=== PATIENT | male | born 1945 | race Caucasian/White ===

== ENCOUNTER 2023-10-04 16:11 | Inpatient (IN) | payer OTHER, MEDICAID ==
[~2023-10-04] VITALS: Ht 185.4 cm; Wt 63.8 kg
[2023-10-04 16:26] VITALS: BP 128/62; PULSE 67; RESP 16; TEMP 97.5; O2SAT 98
[2023-10-04 16:55] VITALS: O2SAT 98
[2023-10-04] MEDS: LORazepam 2 MG/ML VIAL IVP ONE (18:16)
[2023-10-04 18:22] LABS: BASOPHILS # (AUTO) 0.1 K/uL (0.00-0.22); EOSINOPHILS # (AUTO) 0.3 K/uL (0-0.4); EOSINOPHILS % (AUTO) 3.4 % (0.0-4.0); HEMATOCRIT 27.4 % (36-52); HEMOGLOBIN 9.2 g/dL (12.0-18.0); LYMPHOCYTES # (AUTO) 1.4 K/uL (2.0-11.5); LYMPHOCYTES % (AUTO) 14.5 % (20.5-51.1); MEAN CORPUSCULAR HEMOGLOBIN 30 pg (27-31); MEAN CORPUSCULAR HGB CONC 34 g/dL (33-37); MEAN CORPUSCULAR VOLUME 88.3 fL (80-94); MONOCYTES # (AUTO) 0.7 K/uL (0.8-1.0); MONOCYTES % (AUTO) 7.3 % (1.7-9.3); NEUTROPHILS # (AUTO) 7.3 K/uL (1.8-7.7); NEUTROPHILS % (AUTO) 73.8 % (42.2-75.2); PLATELET COUNT (AUTO) 168 K/uL (140-450); RED CELL DISTRIBUTION WIDTH 13.8 % (11.6-13.7); WHITE BLOOD COUNT (AUTO) 9.9 K/uL (4.8-10.8)
[2023-10-04 18:36] LABS: ANION GAP 12.7 (8-16); CHLORIDE 106 mmol/L (98-107); CREATININE 1.6 mg/dL (0.6-1.3); GLUCOSE 91 mg/dL (74-106); POTASSIUM 3.7 mmol/L (3.5-5.1); SODIUM SERUM 139 mmol/L (136-145); UREA NITROGEN, BLOOD 17 mg/dL (7-18)
[2023-10-04 18:49] LABS: ALBUMIN 2.4 g/dL (3.4-5.0); BILIRUBIN,DIRECT 0.1 mg/dL (0.0-0.3); THYROID STIMULATING HORMONE 0.94 uIU/mL (0.34-3.74); TOTAL BILIRUBIN 0.4 mg/dL (0.0-1.0); TOTAL PROTEIN, SERUM 6.6 g/dL (6.4-8.2)
[2023-10-04 20:20] LABS: APPEARANCE,URINE SL CLOUDY (CLEAR); BILIRUBIN,URINE NEGATIVE (NEGATIVE); BLOOD, URINE 1+ (NEGATIVE); COLOR,URINE YELLOW (YELLOW); LEUKOCYTE ESTERASE ,URINE NEGATIVE (NEGATIVE); NITRITE, URINE NEGATIVE (NEGATIVE); PH,URINE 6.5 (5.0-9.0); PROTEIN,URINE 2+ (NEGATIVE); UGLUCOSE NEGATIVE (NEGATIVE); UROBILINOGEN,URINE 0.2 EU/dL (0.2 - 1)
[2023-10-04 20:35] LABS: BACTERIA,URINE 10-30 (MOD) /HPF (None Seen); SQUAMOUS EPITHELIAL CELL,UR 0-3 (FEW) /LPF (0-3 (FEW))
[2023-10-04] MEDS ORDERED: cefTRIAXone 1,000 MG VIAL ONE (23:25)
[2023-10-04] MEDS ORDERED: ONDANSETRON 4 MG/2 ML VIAL IVP PRN (23:55)
[2023-10-05] MEDS ORDERED: VANCOMYCIN PER PHARMACY MC PRN ×2 (00:05→17:50)
[2023-10-05] MEDS ORDERED: VANCOMYCIN 1,000 MG VIAL ONE (00:22)
[2023-10-05] MEDS: VANCOMYCIN 1GM/DEXT 5% PREMIX 200 ML IV ONE (00:25)
[2023-10-05] MEDS: NACL 0.9% 1,000 ML IV SCH (00:25)
[2023-10-05] MEDS ORDERED: MULT-1328 PO (03:08)
[2023-10-05] MEDS ORDERED: ASPI-1822 PO (03:08)
[2023-10-05] MEDS ORDERED: LIP80 PO (03:18)
[2023-10-05] MEDS ORDERED: SIME80CT27 PO (03:18)
[2023-10-05] MEDS ORDERED: APIX2.5 PO (03:18)
[2023-10-05] MEDS ORDERED: ACET-8905 PO (03:18)
[2023-10-05] MEDS ORDERED: CARV3.12 PO (03:18)
[2023-10-05] MEDS ORDERED: IBUP-2213 PO (03:18)
[2023-10-05] MEDS ORDERED: ONDA-188 PO (03:18)
[2023-10-05] MEDS ORDERED: ASCO500T95 PO (03:18)
[2023-10-05] MEDS ORDERED: LANS15EC28 PO (03:18)
[2023-10-05] MEDS: HYDROcodone/APAP 5/325 MG 1 TAB TAB PO PRN (05:47)
[2023-10-05] MEDS ORDERED: LID5T TP (06:03)
[2023-10-05] MEDS ORDERED: DICL20GE TP (06:03)
[2023-10-05] MEDS: PIPERACILLIN/TAZOBACTAM 3.375 GM in DEXTROSE 5% 50 ML IV SCH (06:09)
[2023-10-05] MEDS ORDERED: PIPERACILLIN/TAZOBACTAM 3.375 GM VIAL IV ONE (06:10)
[2023-10-05 07:18] LABS: BASOPHILS # (AUTO) 0.1 K/uL (0.00-0.22); BASOPHILS % (AUTO) 0.8 % (0.0-2.0); EOSINOPHILS # (AUTO) 0.3 K/uL (0-0.4); EOSINOPHILS % (AUTO) 3.8 % (0.0-4.0); HEMATOCRIT 24.7 % (36-52); HEMOGLOBIN 8.5 g/dL (12.0-18.0); LYMPHOCYTES # (AUTO) 1.4 K/uL (2.0-11.5); LYMPHOCYTES % (AUTO) 19.9 % (20.5-51.1); MEAN CORPUSCULAR HEMOGLOBIN 30 pg (27-31); MEAN CORPUSCULAR HGB CONC 34 g/dL (33-37); MEAN CORPUSCULAR VOLUME 88.4 fL (80-94); MONOCYTES # (AUTO) 0.6 K/uL (0.8-1.0); MONOCYTES % (AUTO) 8.4 % (1.7-9.3); NEUTROPHILS # (AUTO) 4.8 K/uL (1.8-7.7); NEUTROPHILS % (AUTO) 67.1 % (42.2-75.2); PLATELET COUNT (AUTO) 154 K/uL (140-450); RED BLOOD CELL COUNT(AUTO) 2.79 MIL/uL (4.20-6.10); RED CELL DISTRIBUTION WIDTH 13.8 % (11.6-13.7); WHITE BLOOD COUNT (AUTO) 7.1 K/uL (4.8-10.8)
[2023-10-05 07:48] LABS: ALANINE AMINOTRANSFERASE 10 U/L (12-78); ALKALINE PHOSPHATASE 85 U/L (50-136); ANION GAP 10.8 (8-16); ASPARTATE AMINOTRANSFERASE 13 U/L (15-37); CALCIUM 8.2 mg/dL (8.5-10.1); CARBON DIOXIDE 24.8 mmol/L (21-32); CHLORIDE 108 mmol/L (98-107); CREATININE 1.7 mg/dL (0.6-1.3); GLUCOSE 105 mg/dL (74-106); POTASSIUM 3.6 mmol/L (3.5-5.1); SODIUM SERUM 140 mmol/L (136-145); TOTAL BILIRUBIN 0.3 mg/dL (0.0-1.0); TOTAL PROTEIN, SERUM 5.7 g/dL (6.4-8.2); UREA NITROGEN, BLOOD 20 mg/dL (7-18)
[2023-10-05] MEDS: PANTOPRAZOLE 40 MG INJ VIAL IVP SCH (08:43)
[2023-10-05] MEDS: VANCOMYCIN 750 MG in DEXTROSE 5% 250 ML IV SCH (08:44)
[2023-10-05] MEDS: DOCUSATE SODIUM 100 MG GELCAP PO SCH (08:45)
[2023-10-05] MEDS: LORazepam 1 MG TAB PO PRN (09:51)
[2023-10-05] MEDS: PIPERACILLIN/TAZOBACTAM 2.25 GM in DEXTROSE 5% 50 ML IV SCH (12:11)
[2023-10-05] MEDS ORDERED: SIMETHICONE 80 MG TAB.CHEW PO PRN (17:40)
[2023-10-05] MEDS: carvediloL 3.125 MG TAB PO SCH (21:00)
[2023-10-06] VITALS (7 sets, daily range): BP systolic 128–142; BP diastolic 61–76; PULSE 62–86; RESP 18–21; TEMP 97.1–98.2; O2SAT 96–100
[2023-10-06 06:46] LABS: ALANINE AMINOTRANSFERASE 10 U/L (12-78); ALKALINE PHOSPHATASE 81 U/L (50-136); ASPARTATE AMINOTRANSFERASE 16 U/L (15-37); CALCIUM 7.9 mg/dL (8.5-10.1); CARBON DIOXIDE 18.9 mmol/L (21-32); CHLORIDE 108 mmol/L (98-107); CREATININE 1.6 mg/dL (0.6-1.3); GLUCOSE 74 mg/dL (74-106); POTASSIUM 3.9 mmol/L (3.5-5.1); SODIUM SERUM 139 mmol/L (136-145); TOTAL BILIRUBIN 0.3 mg/dL (0.0-1.0); TOTAL PROTEIN, SERUM 5.7 g/dL (6.4-8.2); UREA NITROGEN, BLOOD 17 mg/dL (7-18)
[2023-10-06] MEDS: ASPIRIN 81 MG TAB.CHEW PO SCH (09:06)
[2023-10-06] MEDS: ATORVASTATIN 80 MG TAB PO SCH (09:06)
[2023-10-06 09:23] LABS: BASOPHILS # (AUTO) 0.1 K/uL (0.00-0.22); EOSINOPHILS # (AUTO) 0.4 K/uL (0-0.4); EOSINOPHILS % (AUTO) 5.6 % (0.0-4.0); HEMATOCRIT 23.7 % (36-52); HEMOGLOBIN 7.9 g/dL (12.0-18.0); LYMPHOCYTES # (AUTO) 1.3 K/uL (2.0-11.5); LYMPHOCYTES % (AUTO) 18.4 % (20.5-51.1); MEAN CORPUSCULAR HEMOGLOBIN 30 pg (27-31); MEAN CORPUSCULAR HGB CONC 33 g/dL (33-37); MEAN CORPUSCULAR VOLUME 89.1 fL (80-94); MONOCYTES # (AUTO) 0.5 K/uL (0.8-1.0); MONOCYTES % (AUTO) 7.3 % (1.7-9.3); NEUTROPHILS # (AUTO) 4.9 K/uL (1.8-7.7); NEUTROPHILS % (AUTO) 67.7 % (42.2-75.2); PLATELET COUNT (AUTO) 144 K/uL (140-450); RED BLOOD CELL COUNT(AUTO) 2.66 MIL/uL (4.20-6.10); RED CELL DISTRIBUTION WIDTH 13.8 % (11.6-13.7); WHITE BLOOD COUNT (AUTO) 7.3 K/uL (4.8-10.8)
[2023-10-06] MEDS ORDERED: VANCOMYCIN HCL 750 MG in DEXTROSE 5% 250 ML IV SCH (10:30)
[2023-10-06] MEDS: VANCOMYCIN HCL 750 MG in NACL 0.9% 250 ML IV SCH (13:03)
[2023-10-06] MEDS: ZOLPIDEM 5 MG TAB PO PRN (20:50)
[2023-10-07] VITALS (8 sets, daily range): BP systolic 102–153; BP diastolic 55–73; PULSE 62–76; RESP 18–20; TEMP 97–98; O2SAT 96
[2023-10-07 06:05] LABS: BASOPHILS # (AUTO) 0.1 K/uL (0.00-0.22); EOSINOPHILS # (AUTO) 0.4 K/uL (0-0.4); EOSINOPHILS % (AUTO) 6.5 % (0.0-4.0); HEMATOCRIT 23.4 % (36-52); LYMPHOCYTES # (AUTO) 1.3 K/uL (2.0-11.5); LYMPHOCYTES % (AUTO) 23.1 % (20.5-51.1); MEAN CORPUSCULAR HEMOGLOBIN 30 pg (27-31); MEAN CORPUSCULAR HGB CONC 34 g/dL (33-37); MEAN CORPUSCULAR VOLUME 87.7 fL (80-94); MONOCYTES # (AUTO) 0.5 K/uL (0.8-1.0); MONOCYTES % (AUTO) 8.6 % (1.7-9.3); NEUTROPHILS # (AUTO) 3.5 K/uL (1.8-7.7); NEUTROPHILS % (AUTO) 60.8 % (42.2-75.2); PLATELET COUNT (AUTO) 145 K/uL (140-450); RED BLOOD CELL COUNT(AUTO) 2.67 MIL/uL (4.20-6.10); RED CELL DISTRIBUTION WIDTH 13.9 % (11.6-13.7); WHITE BLOOD COUNT (AUTO) 5.8 K/uL (4.8-10.8)
[2023-10-07 06:14] LABS: ALANINE AMINOTRANSFERASE 8 U/L (12-78); ALKALINE PHOSPHATASE 74 U/L (50-136); ANION GAP 9.9 (8-16); ASPARTATE AMINOTRANSFERASE 13 U/L (15-37); CALCIUM 7.7 mg/dL (8.5-10.1); CARBON DIOXIDE 25.8 mmol/L (21-32); CHLORIDE 107 mmol/L (98-107); CREATININE 1.5 mg/dL (0.6-1.3); GLUCOSE 86 mg/dL (74-106); POTASSIUM 3.7 mmol/L (3.5-5.1); SODIUM SERUM 139 mmol/L (136-145); TOTAL BILIRUBIN 0.3 mg/dL (0.0-1.0); TOTAL PROTEIN, SERUM 5.5 g/dL (6.4-8.2); UREA NITROGEN, BLOOD 17 mg/dL (7-18)
[2023-10-07] MEDS: VANCOMYCIN HCL 750 MG in NACL 0.9% 250 ML IV SCH (10:18)
[2023-10-08 04:42] VITALS: O2SAT 99
[2023-10-08 07:11] LABS: BASOPHILS # (AUTO) 0.1 K/uL (0.00-0.22); BASOPHILS % (AUTO) 0.8 % (0.0-2.0); EOSINOPHILS # (AUTO) 0.5 K/uL (0-0.4); EOSINOPHILS % (AUTO) 7.6 % (0.0-4.0); HEMATOCRIT 24.6 % (36-52); HEMOGLOBIN 8.3 g/dL (12.0-18.0); LYMPHOCYTES # (AUTO) 1.5 K/uL (2.0-11.5); MEAN CORPUSCULAR HEMOGLOBIN 30 pg (27-31); MEAN CORPUSCULAR HGB CONC 34 g/dL (33-37); MEAN CORPUSCULAR VOLUME 88.1 fL (80-94); MONOCYTES # (AUTO) 0.5 K/uL (0.8-1.0); MONOCYTES % (AUTO) 7.4 % (1.7-9.3); NEUTROPHILS # (AUTO) 4.1 K/uL (1.8-7.7); NEUTROPHILS % (AUTO) 61.2 % (42.2-75.2); PLATELET COUNT (AUTO) 150 K/uL (140-450); RED BLOOD CELL COUNT(AUTO) 2.79 MIL/uL (4.20-6.10); WHITE BLOOD COUNT (AUTO) 6.6 K/uL (4.8-10.8)
[2023-10-08 07:22] LABS: ALANINE AMINOTRANSFERASE 11 U/L (12-78); ALKALINE PHOSPHATASE 68 U/L (50-136); ANION GAP 11.5 (8-16); ASPARTATE AMINOTRANSFERASE 15 U/L (15-37); CALCIUM 7.5 mg/dL (8.5-10.1); CARBON DIOXIDE 24.4 mmol/L (21-32); CHLORIDE 107 mmol/L (98-107); CREATININE 1.4 mg/dL (0.6-1.3); GLUCOSE 88 mg/dL (74-106); POTASSIUM 3.9 mmol/L (3.5-5.1); SODIUM SERUM 139 mmol/L (136-145); TOTAL BILIRUBIN 0.3 mg/dL (0.0-1.0); TOTAL PROTEIN, SERUM 5.6 g/dL (6.4-8.2); UREA NITROGEN, BLOOD 15 mg/dL (7-18)
[2023-10-08 08:00] VITALS: BP 140/54; PULSE 54; RESP 16; TEMP 97.1; O2SAT 98
[2023-10-08 08:06] VITALS: PULSE 68; RESP 19; O2SAT 99
[2023-10-08] MEDS: CRUSHER, PILL MC ONE (08:59)
[2023-10-08] MEDS: DOCUSATE 100 MG/10 ML UDC GT SCH (10:59)
[2023-10-08] MEDS ORDERED: FOAM DRESSING TP PRN (11:25)
[2023-10-08] MEDS ORDERED: THERAHONEY GEL 42.5 GM TP PRN (11:25)
[2023-10-08] MEDS: VANCOMYCIN 750 MG in DEXTROSE 5% 250 ML IV SCH (11:25)
[2023-10-08] MEDS: THERAHONEY GEL 42.5 GM TP SCH (13:00)
[2023-10-08] MEDS: FOAM DRESSING TP SCH (13:00)
[2023-10-08 18:00] VITALS: BP 146/56; PULSE 58; RESP 19; TEMP 98.7; O2SAT 99
[2023-10-08 20:00] VITALS: PULSE 64; RESP 18; O2SAT 98
[2023-10-08] MEDS ORDERED: ERTAPENEM SODIUM 1,000 MG VIAL IV ONE (23:57)
[2023-10-09 00:10] VITALS: BP 128/66; PULSE 72; RESP 18; TEMP 98.3; O2SAT 98
[2023-10-09] MEDS: ERTAPENEM SODIUM 1,000 MG in NACL 0.9% 50 ML IV SCH (00:18)
[2023-10-09] MEDS ORDERED: ERTAPENEM SODIUM 1,000 MG VIAL IV ONE (06:27)
[2023-10-09 07:14] LABS: BASOPHILS # (AUTO) 0.1 K/uL (0.00-0.22); EOSINOPHILS # (AUTO) 0.7 K/uL (0-0.4); EOSINOPHILS % (AUTO) 9.1 % (0.0-4.0); HEMATOCRIT 24.3 % (36-52); HEMOGLOBIN 8.1 g/dL (12.0-18.0); LYMPHOCYTES # (AUTO) 1.7 K/uL (2.0-11.5); LYMPHOCYTES % (AUTO) 21.7 % (20.5-51.1); MEAN CORPUSCULAR HEMOGLOBIN 30 pg (27-31); MEAN CORPUSCULAR HGB CONC 33 g/dL (33-37); MONOCYTES # (AUTO) 0.5 K/uL (0.8-1.0); MONOCYTES % (AUTO) 6.9 % (1.7-9.3); NEUTROPHILS # (AUTO) 4.7 K/uL (1.8-7.7); NEUTROPHILS % (AUTO) 61.3 % (42.2-75.2); PLATELET COUNT (AUTO) 143 K/uL (140-450); RED BLOOD CELL COUNT(AUTO) 2.73 MIL/uL (4.20-6.10); WHITE BLOOD COUNT (AUTO) 7.7 K/uL (4.8-10.8)
[2023-10-09 07:33] LABS: ALANINE AMINOTRANSFERASE 15 U/L (12-78); ALBUMIN 1.9 g/dL (3.4-5.0); ALKALINE PHOSPHATASE 68 U/L (50-136); ANION GAP 11.3 (8-16); ASPARTATE AMINOTRANSFERASE 21 U/L (15-37); CALCIUM 7.6 mg/dL (8.5-10.1); CARBON DIOXIDE 24.7 mmol/L (21-32); CHLORIDE 108 mmol/L (98-107); CREATININE 1.5 mg/dL (0.6-1.3); GLUCOSE 82 mg/dL (74-106); SODIUM SERUM 140 mmol/L (136-145); TOTAL BILIRUBIN 0.3 mg/dL (0.0-1.0); TOTAL PROTEIN, SERUM 5.5 g/dL (6.4-8.2); UREA NITROGEN, BLOOD 11 mg/dL (7-18)
[2023-10-09 08:00] VITALS: BP_SYST 108; BP_SYST 140; BP_DIAS 45; BP_DIAS 54; PULSE 52; PULSE 54; PULSE 59; PULSE 64; RESP 16; RESP 18; TEMP 97.1; TEMP 98; O2SAT 98
[2023-10-09 09:13] VITALS: O2SAT 100
[2023-10-09 12:00] VITALS: BP 131/50; PULSE 63; RESP 18; TEMP 98.1; O2SAT 98
[2023-10-09 15:09] VITALS: BP 131/50; PULSE 63; RESP 18; TEMP 98.4
[2023-10-10] MEDS ORDERED: ERTAPENEM SODIUM 1,000 MG in NACL 0.9% 50 ML IV SCH (08:00)
== END 2023-10-09 17:30 | DRG 592 ==
LOC: MED 16:11 → MTU 23:56
PROVIDERS: ADMIT Student in an Organized Health Care Education/Training Program; ATTEND Student in an Organized Health Care Education/Training Program
DX: L89.154 Pressure ulcer of sacral region, stage 4 (principal); E43 Unspecified severe protein-calorie malnutrition; Z68.1 Body mass index [BMI] 19.9 or less, adult; M47.898 Other spondylosis, sacral and sacrococcygeal region; I25.10 Atherosclerotic heart disease of native coronary artery without angina pectoris; N18.9 Chronic kidney disease, unspecified; D64.9 Anemia, unspecified; E11.22 Type 2 diabetes mellitus with diabetic chronic kidney disease; E11.69 Type 2 diabetes mellitus with other specified complication; F03.90 Unspecified dementia, unspecified severity, without behavioral disturbance, psychotic disturbance, mood disturbance, and anxiety; J44.9 Chronic obstructive pulmonary disease, unspecified; I25.2 Old myocardial infarction; Z88.1 Allergy status to other antibiotic agents
CPT/HCPCS: 36415; 71045; 72192; 80048; 80053; 80076; 80202; 81001; 82948; 83540; 83605; 84443; 85025; 87040; 87070; 87086; 87186; 96365; 96366; 96367; 96375; 99285; C9113; J0696; J0713; J1335; J2060; J2543; J3370; J7030; J7060

== ENCOUNTER 2023-10-16 15:06 | Inpatient (IN) | payer OTHER, MEDICAID ==
[~2023-10-16] VITALS: Ht 180.3 cm; Wt 72.3 kg
[~2023-10-16 15:06] MED LIST: ACET-8905 PO; APIX2.5 PO; ASCO500T95 PO; ASPI-1822 PO; CARV3.12 PO; DICL20GE TP; IBUP-2213 PO; LANS15EC28 PO; LID5T TP; LIP80 PO; MULT-1328 PO; ONDA-188 PO; SIME80CT27 PO
[2023-10-16 16:07] LABS: BASOPHILS # (AUTO) 0.1 K/uL (0.00-0.22); BASOPHILS % (AUTO) 0.9 % (0.0-2.0); EOSINOPHILS # (AUTO) 0.6 K/uL (0-0.4); EOSINOPHILS % (AUTO) 8.6 % (0.0-4.0); HEMOGLOBIN 9.6 g/dL (12.0-18.0); LYMPHOCYTES # (AUTO) 1.2 K/uL (2.0-11.5); LYMPHOCYTES % (AUTO) 16.9 % (20.5-51.1); MEAN CORPUSCULAR HEMOGLOBIN 30 pg (27-31); MEAN CORPUSCULAR HGB CONC 34 g/dL (33-37); MEAN CORPUSCULAR VOLUME 87.4 fL (80-94); MONOCYTES # (AUTO) 0.5 K/uL (0.8-1.0); MONOCYTES % (AUTO) 7.5 % (1.7-9.3); NEUTROPHILS # (AUTO) 4.5 K/uL (1.8-7.7); NEUTROPHILS % (AUTO) 66.1 % (42.2-75.2); PLATELET COUNT (AUTO) 152 K/uL (140-450); RED CELL DISTRIBUTION WIDTH 14.2 % (11.6-13.7); WHITE BLOOD COUNT (AUTO) 6.8 K/uL (4.8-10.8)
[2023-10-16 16:12] VITALS: BP 126/76; PULSE 72; RESP 18; TEMP 98.3; O2SAT 96
[2023-10-16 16:29] LABS: ANION GAP 12.7 (8-16); CALCIUM 8.5 mg/dL (8.5-10.1); CARBON DIOXIDE 27.4 mmol/L (21-32); CHLORIDE 103 mmol/L (98-107); CREATININE 1.2 mg/dL (0.6-1.3); GLUCOSE 86 mg/dL (74-106); POTASSIUM 4.1 mmol/L (3.5-5.1); SODIUM SERUM 139 mmol/L (136-145); UREA NITROGEN, BLOOD 12 mg/dL (7-18)
[2023-10-16 17:02] LABS: ALANINE AMINOTRANSFERASE 14 U/L (12-78); ALBUMIN 2.5 g/dL (3.4-5.0); ALCOHOL, BLOOD < 3 mg/dL (<10); ALKALINE PHOSPHATASE 100 U/L (50-136); ASPARTATE AMINOTRANSFERASE 21 U/L (15-37); BILIRUBIN,DIRECT 0.2 mg/dL (0.0-0.3); CREATINE KINASE, TOTAL 95 U/L (39-308); TOTAL BILIRUBIN 0.5 mg/dL (0.0-1.0); TOTAL PROTEIN, SERUM 6.6 g/dL (6.4-8.2)
[2023-10-16 17:03] LABS: SALICYLATE < 2.8 mg/dL (2.8-20.0)
[2023-10-16] MEDS: HALOPERIDOL IM 5 MG/ML VIAL IM ONE (17:57)
[2023-10-16 18:45] VITALS: O2SAT 95
[2023-10-16 18:51] LABS: BILIRUBIN,URINE NEGATIVE (NEGATIVE); BLOOD, URINE NEGATIVE (NEGATIVE); COLOR,URINE YELLOW (YELLOW); LEUKOCYTE ESTERASE ,URINE NEGATIVE (NEGATIVE); NITRITE, URINE NEGATIVE (NEGATIVE); PROTEIN,URINE 1+ (NEGATIVE); UGLUCOSE NEGATIVE (NEGATIVE); UROBILINOGEN,URINE 0.2 EU/dL (0.2 - 1)
[2023-10-16 18:52] LABS: APPEARANCE,URINE SLIGHTLY HAZY (CLEAR)
[2023-10-16 18:55] LABS: BACTERIA,URINE 1+ /HPF (None Seen); MUCUS,URINE None Seen /LPF (None Seen); RBC,URINE 0 /HPF (0-5); SQUAMOUS EPITHELIAL CELL,UR 0-3 (FEW) /LPF (0-3 (FEW)); WBC,URINE 0-5 /HPF (0-5)
[2023-10-16 18:57] LABS: AMPHETAMINE, URINE NEGATIVE ng/ml (NEG <=1000); BARBITURATE, URINE NEGATIVE ng/ml (NEG <=200); BENZODIAZEPINE, URINE NEGATIVE ng/mL (NEG <=200); CANNABINOID, URINE NEGATIVE ng/mL (NEG <=50); COCAINE, URINE NEGATIVE ng/mL (NEG <=300); OPIATE, URINE POSITIVE ng/mL (NEG <=2000); PHENCYCLIDINE SCREEN,URINE NEGATIVE ng/mL (NEG <=25)
[2023-10-16 19:47] VITALS: O2SAT 95
[2023-10-16] MEDS ORDERED: ONDANSETRON 4 MG/2 ML VIAL IVP PRN (20:15)
[2023-10-16] MEDS ORDERED: ACETAMINOPHEN 325 MG TAB PO PRN (20:15)
[2023-10-16] MEDS: ATORVASTATIN 80 MG TAB PO SCH (22:07)
[2023-10-16] MEDS: APIXABAN 2.5 MG TAB PO SCH (22:08)
[2023-10-16] MEDS: carvediloL 3.125 MG TAB PO SCH (22:12)
[2023-10-16] MEDS ORDERED: cefTRIAXone 1,000 MG VIAL ONE (22:55)
[2023-10-16] MEDS: NACL 0.9% 1,000 ML IV SCH (23:02)
[2023-10-16 23:32] VITALS: O2SAT 98
[2023-10-17 01:57] VITALS: O2SAT 98
[2023-10-17 06:42] LABS: BASOPHILS # (AUTO) 0.1 K/uL (0.00-0.22); BASOPHILS % (AUTO) 1.2 % (0.0-2.0); EOSINOPHILS # (AUTO) 0.5 K/uL (0-0.4); EOSINOPHILS % (AUTO) 8.2 % (0.0-4.0); HEMATOCRIT 29.5 % (36-52); HEMOGLOBIN 10.2 g/dL (12.0-18.0); LYMPHOCYTES # (AUTO) 1.3 K/uL (2.0-11.5); LYMPHOCYTES % (AUTO) 22.8 % (20.5-51.1); MEAN CORPUSCULAR HEMOGLOBIN 30 pg (27-31); MEAN CORPUSCULAR HGB CONC 34 g/dL (33-37); MONOCYTES # (AUTO) 0.4 K/uL (0.8-1.0); MONOCYTES % (AUTO) 7.1 % (1.7-9.3); NEUTROPHILS # (AUTO) 3.5 K/uL (1.8-7.7); NEUTROPHILS % (AUTO) 60.7 % (42.2-75.2); PLATELET COUNT (AUTO) 152 K/uL (140-450); RED BLOOD CELL COUNT(AUTO) 3.35 MIL/uL (4.20-6.10); RED CELL DISTRIBUTION WIDTH 14.1 % (11.6-13.7); WHITE BLOOD COUNT (AUTO) 5.8 K/uL (4.8-10.8)
[2023-10-17 06:51] LABS: ANION GAP 10.2 (8-16); CALCIUM 8.4 mg/dL (8.5-10.1); CARBON DIOXIDE 28.7 mmol/L (21-32); CHLORIDE 103 mmol/L (98-107); CREATININE 1.2 mg/dL (0.6-1.3); GLUCOSE 81 mg/dL (74-106); POTASSIUM 3.9 mmol/L (3.5-5.1); SODIUM SERUM 138 mmol/L (136-145); UREA NITROGEN, BLOOD 13 mg/dL (7-18)
[2023-10-17] MEDS: MULTIVITAMIN/MINERALS 1 TAB PO SCH (09:00)
[2023-10-17] MEDS: ASCORBIC ACID 500 MG TAB PO SCH (09:27)
[2023-10-17 17:24] VITALS: O2SAT 97
[2023-10-17 17:49] VITALS: PULSE 80; RESP 16; O2SAT 97
[2023-10-17 18:48] VITALS: RESP 80; O2SAT 96
[2023-10-17 20:00] VITALS: BP 125/50; PULSE 63; RESP 17; TEMP 97.6; O2SAT 97
[2023-10-18 04:00] VITALS: BP_SYST 101; BP_SYST 113; BP_DIAS 53; BP_DIAS 58; PULSE 56; PULSE 90; RESP 18; TEMP 96.4; TEMP 96.9; O2SAT 95
[2023-10-18 07:01] LABS: BASOPHILS # (AUTO) 0.1 K/uL (0.00-0.22); BASOPHILS % (AUTO) 1.2 % (0.0-2.0); EOSINOPHILS # (AUTO) 0.7 K/uL (0-0.4); HEMATOCRIT 25.1 % (36-52); HEMOGLOBIN 8.7 g/dL (12.0-18.0); LYMPHOCYTES # (AUTO) 1.3 K/uL (2.0-11.5); LYMPHOCYTES % (AUTO) 21.5 % (20.5-51.1); MEAN CORPUSCULAR HEMOGLOBIN 30 pg (27-31); MEAN CORPUSCULAR HGB CONC 35 g/dL (33-37); MEAN CORPUSCULAR VOLUME 87.5 fL (80-94); MONOCYTES # (AUTO) 0.5 K/uL (0.8-1.0); MONOCYTES % (AUTO) 8.2 % (1.7-9.3); NEUTROPHILS # (AUTO) 3.4 K/uL (1.8-7.7); NEUTROPHILS % (AUTO) 57.1 % (42.2-75.2); PLATELET COUNT (AUTO) 128 K/uL (140-450); RED BLOOD CELL COUNT(AUTO) 2.87 MIL/uL (4.20-6.10); RED CELL DISTRIBUTION WIDTH 13.9 % (11.6-13.7)
[2023-10-18 07:14] LABS: ANION GAP 11.5 (8-16); CALCIUM 8.1 mg/dL (8.5-10.1); CARBON DIOXIDE 26.3 mmol/L (21-32); CHLORIDE 106 mmol/L (98-107); CREATININE 1.2 mg/dL (0.6-1.3); GLUCOSE 71 mg/dL (74-106); POTASSIUM 3.8 mmol/L (3.5-5.1); SODIUM SERUM 140 mmol/L (136-145); UREA NITROGEN, BLOOD 12 mg/dL (7-18)
[2023-10-18 08:00] VITALS: PULSE 49; RESP 18; O2SAT 100
[2023-10-18 12:00] VITALS: BP 113/58; PULSE 49; RESP 18; TEMP 96.4; O2SAT 100
[2023-10-18 16:00] VITALS: BP 122/51; PULSE 57; RESP 16; TEMP 97.7; O2SAT 97
[2023-10-18 20:00] VITALS: BP 113/44; PULSE 65; RESP 18; TEMP 98.7; O2SAT 95
[2023-10-18] MEDS: QUEtiapine FUMARATE 25 MG TAB PO SCH (20:22)
[2023-10-19] MEDS: LORazepam 2 MG/ML VIAL IVP PRN (01:08)
[2023-10-19 04:00] VITALS: BP 142/63; PULSE 62; RESP 17; TEMP 97.8; O2SAT 98
[2023-10-19 06:57] LABS: BASOPHILS # (AUTO) 0.1 K/uL (0.00-0.22); BASOPHILS % (AUTO) 0.9 % (0.0-2.0); EOSINOPHILS # (AUTO) 0.9 K/uL (0-0.4); EOSINOPHILS % (AUTO) 12.4 % (0.0-4.0); HEMATOCRIT 27.5 % (36-52); HEMOGLOBIN 9.5 g/dL (12.0-18.0); LYMPHOCYTES # (AUTO) 1.8 K/uL (2.0-11.5); LYMPHOCYTES % (AUTO) 26.3 % (20.5-51.1); MEAN CORPUSCULAR HEMOGLOBIN 30 pg (27-31); MEAN CORPUSCULAR HGB CONC 35 g/dL (33-37); MEAN CORPUSCULAR VOLUME 87.2 fL (80-94); MONOCYTES # (AUTO) 0.6 K/uL (0.8-1.0); MONOCYTES % (AUTO) 8.3 % (1.7-9.3); NEUTROPHILS # (AUTO) 3.6 K/uL (1.8-7.7); NEUTROPHILS % (AUTO) 52.1 % (42.2-75.2); PLATELET COUNT (AUTO) 154 K/uL (140-450); RED BLOOD CELL COUNT(AUTO) 3.16 MIL/uL (4.20-6.10); WHITE BLOOD COUNT (AUTO) 6.9 K/uL (4.8-10.8)
[2023-10-19 07:13] LABS: ANION GAP 12.1 (8-16); CALCIUM 8.3 mg/dL (8.5-10.1); CARBON DIOXIDE 27.4 mmol/L (21-32); CHLORIDE 106 mmol/L (98-107); CREATININE 1.2 mg/dL (0.6-1.3); GLUCOSE 81 mg/dL (74-106); POTASSIUM 3.5 mmol/L (3.5-5.1); SODIUM SERUM 142 mmol/L (136-145); UREA NITROGEN, BLOOD 14 mg/dL (7-18)
[2023-10-19 08:00] VITALS: PULSE 69; RESP 18; O2SAT 95
[2023-10-19] MEDS ORDERED: QUET25TA PO (10:18)
[2023-10-19 14:54] VITALS: O2SAT 97
== END 2023-10-19 16:41 | DRG 70 ==
LOC: MED 15:06 → MMU 20:14 → MTU 10-17 17:02
PROVIDERS: ADMIT Internal Medicine; ATTEND Internal Medicine
DX: G93.41 Metabolic encephalopathy (principal); E43 Unspecified severe protein-calorie malnutrition; N39.0 Urinary tract infection, site not specified; F20.9 Schizophrenia, unspecified; Z79.899 Other long term (current) drug therapy; F11.90 Opioid use, unspecified, uncomplicated; Z68.22 Body mass index [BMI] 22.0-22.9, adult
CPT/HCPCS: 36415; 70450; 71045; 80048; 80076; 80305; 81001; 82140; 82550; 83735; 84484; 85025; 87081; 87086; 93005; 96372; 99285; G0480; G0482; J0696; J1630; J2060; J7060; Q0092

== ENCOUNTER 2024-01-30 11:30 | Inpatient (IN) | payer OTHER, MEDICAID ==
[~2024-01-30] VITALS: Ht 152.4 cm; Wt 56.4 kg
[~2024-01-30 11:30] MED LIST changes: +QUET25TA PO
[2024-01-30 11:36] VITALS: BP 107/41; PULSE 77; RESP 17; TEMP 98; O2SAT 90
[2024-01-30 12:02] VITALS: O2SAT 100
[2024-01-30] MEDS ORDERED: VITC500 PO (12:30)
[2024-01-30] MEDS ORDERED: LORA2SOL IM (12:30)
[2024-01-30] MEDS ORDERED: APIX5TAB PO (12:30)
[2024-01-30] MEDS ORDERED: LACT1CAP66 PO (12:30)
[2024-01-30] MEDS ORDERED: ATOR40TA40 PO (12:30)
[2024-01-30] MEDS: NACL 0.9% 1,000 ML IV SCH (13:46)
[2024-01-30 14:11] LABS: BASOPHILS % (AUTO) 0.2 % (0.0-2.0); EOSINOPHILS # (AUTO) 0.1 K/uL (0-0.4); EOSINOPHILS % (AUTO) 1.2 % (0.0-4.0); HEMATOCRIT 34.9 % (36-52); HEMOGLOBIN 11.8 g/dL (12.0-18.0); LYMPHOCYTES # (AUTO) 1.5 K/uL (2.0-11.5); LYMPHOCYTES % (AUTO) 14.4 % (20.5-51.1); MEAN CORPUSCULAR HEMOGLOBIN 29 pg (27-31); MEAN CORPUSCULAR HGB CONC 34 g/dL (33-37); MEAN CORPUSCULAR VOLUME 86.5 fL (80-94); MONOCYTES # (AUTO) 0.7 K/uL (0.8-1.0); MONOCYTES % (AUTO) 6.8 % (1.7-9.3); NEUTROPHILS # (AUTO) 8.2 K/uL (1.8-7.7); NEUTROPHILS % (AUTO) 77.4 % (42.2-75.2); PLATELET COUNT (AUTO) 278 K/uL (140-450); RED BLOOD CELL COUNT(AUTO) 4.04 MIL/uL (4.20-6.10); WHITE BLOOD COUNT (AUTO) 10.6 K/uL (4.8-10.8)
[2024-01-30] MEDS ORDERED: ACETAMINOPHEN 325 MG TAB PO PRN (14:20)
[2024-01-30 14:32] LABS: ALANINE AMINOTRANSFERASE 33 U/L (12-78); ALBUMIN 2.3 g/dL (3.4-5.0); ALKALINE PHOSPHATASE 92 U/L (50-136); ASPARTATE AMINOTRANSFERASE 34 U/L (15-37); BILIRUBIN,DIRECT 0.2 mg/dL (0.0-0.3); TOTAL BILIRUBIN 0.4 mg/dL (0.0-1.0); TOTAL PROTEIN, SERUM 6.9 g/dL (6.4-8.2)
[2024-01-30 14:34] LABS: LACTIC ACID 1.1 mmol/L (0.4-2.0)
[2024-01-30 14:38] LABS: CARBON DIOXIDE 24.8 mmol/L (21-32); CHLORIDE 102 mmol/L (98-107); CREATININE 1.1 mg/dL (0.6-1.3); GLUCOSE 89 mg/dL (74-106); INR 1.18 (0.8-1.2); PARTIAL THROMBOPLASTIN TIME 33.2 secs (22-35.6); POTASSIUM 3.8 mmol/L (3.5-5.1); PROTHROMBIN TIME 12.3 secs (10.8-13.4); SODIUM SERUM 136 mmol/L (136-145); UREA NITROGEN, BLOOD 34 mg/dL (7-18)
[2024-01-30] MEDS: DEXT 5% / NACL 0.45% 1,000 ML IV SCH (14:52)
[2024-01-30 18:57] LABS: APPEARANCE,URINE CLEAR (CLEAR); BILIRUBIN,URINE NEGATIVE (NEGATIVE); BLOOD, URINE NEGATIVE (NEGATIVE); COLOR,URINE YELLOW (YELLOW); LEUKOCYTE ESTERASE ,URINE NEGATIVE (NEGATIVE); NITRITE, URINE NEGATIVE (NEGATIVE); PROTEIN,URINE NEGATIVE (NEGATIVE); UGLUCOSE NEGATIVE (NEGATIVE); UROBILINOGEN,URINE 0.2 EU/dL (0.2 - 1)
[2024-01-30 19:50] VITALS: O2SAT 100
[2024-01-30 22:42] VITALS: O2SAT 99
[2024-01-31] MEDS: HYDROcodone/APAP 5/325 MG 1 TAB TAB PO PRN (00:11)
[2024-01-31 01:24] VITALS: O2SAT 99
[2024-01-31] MEDS: MORPHINE SULFATE 2 MG/ML SYR IVP PRN (03:52)
[2024-01-31 05:20] VITALS: O2SAT 99
[2024-01-31 06:56] LABS: ALANINE AMINOTRANSFERASE 30 U/L (12-78); ALBUMIN 2.1 g/dL (3.4-5.0); ALKALINE PHOSPHATASE 104 U/L (50-136); ANION GAP 11.7 (8-16); ASPARTATE AMINOTRANSFERASE 35 U/L (15-37); CALCIUM 8.3 mg/dL (8.5-10.1); CARBON DIOXIDE 22.2 mmol/L (21-32); CHLORIDE 104 mmol/L (98-107); CREATININE 1.1 mg/dL (0.6-1.3); GLUCOSE 94 mg/dL (74-106); POTASSIUM 3.9 mmol/L (3.5-5.1); SODIUM SERUM 134 mmol/L (136-145); TOTAL BILIRUBIN 0.5 mg/dL (0.0-1.0); TOTAL PROTEIN, SERUM 6.6 g/dL (6.4-8.2); UREA NITROGEN, BLOOD 30 mg/dL (7-18)
[2024-01-31 07:49] LABS: BASOPHILS # (AUTO) 0.1 K/uL (0.00-0.22); BASOPHILS % (AUTO) 0.7 % (0.0-2.0); EOSINOPHILS # (AUTO) 0.1 K/uL (0-0.4); EOSINOPHILS % (AUTO) 1.5 % (0.0-4.0); HEMATOCRIT 33.7 % (36-52); HEMOGLOBIN 11.3 g/dL (12.0-18.0); LYMPHOCYTES # (AUTO) 1.5 K/uL (2.0-11.5); LYMPHOCYTES % (AUTO) 16.5 % (20.5-51.1); MEAN CORPUSCULAR HEMOGLOBIN 30 pg (27-31); MEAN CORPUSCULAR HGB CONC 33 g/dL (33-37); MONOCYTES # (AUTO) 0.7 K/uL (0.8-1.0); MONOCYTES % (AUTO) 7.6 % (1.7-9.3); NEUTROPHILS # (AUTO) 6.6 K/uL (1.8-7.7); NEUTROPHILS % (AUTO) 73.7 % (42.2-75.2); PLATELET COUNT (AUTO) 264 K/uL (140-450); RED BLOOD CELL COUNT(AUTO) 3.74 MIL/uL (4.20-6.10); RED CELL DISTRIBUTION WIDTH 14.8 % (11.6-13.7); WHITE BLOOD COUNT (AUTO) 8.9 K/uL (4.8-10.8)
[2024-01-31 09:00] VITALS: BP 100/48; PULSE 65; RESP 18; TEMP 97.1; O2SAT 95
[2024-01-31 12:00] VITALS: BP 100/48; PULSE 65; RESP 18; TEMP 97.1; O2SAT 95
[2024-01-31 16:00] VITALS: BP 137/52; PULSE 59; RESP 16; TEMP 97.7; O2SAT 97
[2024-01-31 20:00] VITALS: BP 105/63; PULSE 59; RESP 20; TEMP 96.8; O2SAT 96
[2024-02-01] VITALS (7 sets, daily range): BP systolic 113–158; BP diastolic 52–71; PULSE 59–93; RESP 16–72; TEMP 96.7–98.1; O2SAT 76–100
[2024-02-01] MEDS: MIDAZOLAM 5 MG/5 ML VIAL ONE (11:13)
[2024-02-01] MEDS: fentaNYL citrate 0.05 MG/ML VIAL ONE (11:13)
[2024-02-01] MEDS: FLUMAZENIL 0.5 MG/5 ML VIAL IVP ONE (11:14)
[2024-02-01] MEDS: NALOXONE 0.4 MG/ML VIAL ONE (11:15)
[2024-02-01] MEDS ORDERED: ALGINATE ROPE MC PRN (11:35)
[2024-02-01] MEDS ORDERED: FOAM DRESSING TP PRN (11:35)
[2024-02-01] MEDS ORDERED: HYDRAGUARD CREAM TP PRN (11:35)
[2024-02-01] MEDS: MIDAZOLAM 5 MG/5 ML VIAL IV ONE (12:02)
[2024-02-01] MEDS: fentaNYL citrate 0.05 MG/ML VIAL IVP ONE (12:04)
[2024-02-01] MEDS: ceFAZolin 1,000 MG VIAL ONE (12:10)
[2024-02-01] MEDS: HYDRAGUARD CREAM TP SCH (13:00)
[2024-02-01] MEDS: ALGINATE ROPE MC SCH (13:00)
[2024-02-01] MEDS: GAUZE TP SCH (13:00)
[2024-02-01] MEDS: FOAM DRESSING TP SCH (13:00)
[2024-02-02 04:00] VITALS: BP 129/62; PULSE 72; RESP 18; TEMP 97.3; O2SAT 100
[2024-02-02 08:00] VITALS: PULSE 63; RESP 20; O2SAT 100; O2SAT 95
== END 2024-02-02 14:00 | DRG 56 ==
LOC: MED 11:30 → MMU 14:23 → MTU 14:23
PROVIDERS: ADMIT Family Medicine; ATTEND Family Medicine
PROC: 0DH68UZ Insertion of Feeding Device into Stomach, Via Natural or Artificial Opening Endoscopic (ICD-10-PCS; principal; 2024-02-01 17:35)
DX: I69.391 Dysphagia following cerebral infarction (principal); E43 Unspecified severe protein-calorie malnutrition; L89.154 Pressure ulcer of sacral region, stage 4; R62.7 Adult failure to thrive; D64.9 Anemia, unspecified; Z20.822 Contact with and (suspected) exposure to COVID-19; F03.90 Unspecified dementia, unspecified severity, without behavioral disturbance, psychotic disturbance, mood disturbance, and anxiety; K20.90 Esophagitis, unspecified without bleeding; K29.40 Chronic atrophic gastritis without bleeding; J44.9 Chronic obstructive pulmonary disease, unspecified; I25.10 Atherosclerotic heart disease of native coronary artery without angina pectoris; E11.22 Type 2 diabetes mellitus with diabetic chronic kidney disease; I12.9 Hypertensive chronic kidney disease with stage 1 through stage 4 chronic kidney disease, or unspecified chronic kidney disease; N18.9 Chronic kidney disease, unspecified; F20.9 Schizophrenia, unspecified; Z88.8 Allergy status to other drugs, medicaments and biological substances
CPT/HCPCS: 36415; 71045; 80048; 80053; 80076; 81003; 83605; 83880; 84484; 85025; 85610; 85730; 87040; 87081; 87086; 93005; 96360; 99285; J0690; J2250; J2270; J2310; J3010; J3490; J7030